=== PATIENT | male | born 1960 | race Caucasian/White ===

== ENCOUNTER 2017-08-04 14:53 | Outpatient (RCR) | payer OTHER | END 2017-11-02 | disposition home or self-care (01) | LOC: WSOT | DX: G56.23 Lesion of ulnar nerve, bilateral upper limbs (principal) ==

== ENCOUNTER 2017-08-10 10:53 | Outpatient (RCR) | payer OTHER | END 2017-11-08 | disposition home or self-care (01) | LOC: WSPT | DX: G56.23 Lesion of ulnar nerve, bilateral upper limbs (principal) ==

== ENCOUNTER → 2017-11-15 | Outpatient (CLI) | payer OTHER | LOC: COL.RAD 12:15 | DX: R55 Syncope and collapse (principal); M79.9 Soft tissue disorder, unspecified ==

== ENCOUNTER 2018-06-19 11:27 | Inpatient (IN) | payer OTHER ==
[~2018-06-19] VITALS: Ht 188 cm; Wt 91.1 kg
[~2018-06-19 11:27] MED LIST: CELEBREX400 MG PO; CEPHALEXIN500 M1 PO; CYMBALTA 30MG30 MG PO; FLEXERIL 1010 MG/TAB PO; MILLIPRED DP5 MG PO; NEURONTIN300 MG/CAP PO; PROTONIX 40MG T40 MG PO; ZOCOR 40MG40 MG PO; [UNRECOGNIZED DRUG - OTHER] PO
[2018-06-30] VITALS (10 sets, daily range): BP systolic 118–147; BP diastolic 61–93; PULSE 72–89; TEMP 97.6–98.9
[2018-06-30] MEDS ORDERED: LIALDA 1.2 GM1.2 GM PO (07:23)
[2018-06-30] MEDS ORDERED: NORCO 325 MG-51 TAB PO (07:25)
[2018-07-01] VITALS (7 sets, daily range): BP systolic 103–174; BP diastolic 61–102; PULSE 83–101; TEMP 97.8–98.8
[2018-07-01 05:27] LABS: BASO % 0.2 % (0.0-2.0); EOS % 0.1 % (0-4.0); GRAN # 11.3 (1.4-6.5); HEMATOCRIT 37.2 % (42.0-52.0); HEMOGLOBIN 13.1 g/dl (13.5-18.0); LYMPH # 2.6 (1.2-3.4); MEAN CELL VOLUME 100 fl (80.0-100.0); MEAN CORPUSCULAR HEMOGLOBIN 35 pg (27.0-31.0); MEAN CORPUSCULAR HGB CONC 35 g/dl (33.0-37.0); MONO # 1.3 (0.1-0.6); MONO % 8.2 % (1.7-9.3); PLATELET COUNT 232 K/mm3 (130-400); RED BLOOD COUNT 3.73 M/mm3 (4.20-5.60); REDCELL DISTRIBUTION WIDTH-CV 12.4 % (11.5-14.5)
[2018-07-01 05:39] LABS: CALCIUM 9.2 mg/dL (8.4-10.2); CREATININE, serum 1.2 mg/dL (0.66-1.25); POTASSIUM 4.4 mmol/L (3.4-5.0)
[2018-07-02 03:45] VITALS: BP 104/67; PULSE 83; TEMP 98.4
[2018-07-02 06:54] LABS: BASO # 0.1 (0.0-0.2); BASO % 0.5 % (0.0-2.0); EOS # 0.1 (0.0-0.7); GRAN # 7.4 (1.4-6.5); GRAN % 68.5 % (42.2-75.2); LYMPH # 2.4 (1.2-3.4); LYMPH % 22.7 % (20.0-51.0); MEAN CELL VOLUME 101 fl (80.0-100.0); MEAN CORPUSCULAR HGB CONC 35 g/dl (33.0-37.0); MEAN PLATELET VOLUME 9.8 fl (7.4-10.4); MONO # 0.7 (0.1-0.6); MONO % 6.9 % (1.7-9.3); PLATELET COUNT 192 K/mm3 (130-400); RED BLOOD COUNT 3.09 M/mm3 (4.20-5.60); REDCELL DISTRIBUTION WIDTH-CV 12.6 % (11.5-14.5)
[2018-07-02 06:55] LABS: HEMATOCRIT 31.2 % (42.0-52.0); MEAN CORPUSCULAR HEMOGLOBIN 36 pg (27.0-31.0)
[2018-07-02 07:04] LABS: CALCIUM 8.9 mg/dL (8.4-10.2); CREATININE, serum 0.91 mg/dL (0.66-1.25); POTASSIUM 4.2 mmol/L (3.4-5.0)
[2018-07-02 09:16] VITALS: BP 117/66; PULSE 75; TEMP 97.6
[2018-07-02 11:15] VITALS: BP 113/63; PULSE 87; TEMP 98.6
[2018-07-02 15:25] VITALS: BP 105/65; PULSE 85; TEMP 98.6
[2018-07-02 19:49] VITALS: BP 100/60; PULSE 78; TEMP 98.5
[2018-07-03 04:08] VITALS: BP 107/68; PULSE 72; TEMP 97.5
[2018-07-03 07:27] VITALS: BP 113/70; PULSE 88; TEMP 97.4
[2018-07-03 11:50] VITALS: BP 122/64; PULSE 73; TEMP 98.6
== END 2018-07-03 14:48 | disposition home or self-care (01) | DRG 331 ==
LOC: INPTSU 06-30 06:58 → SURG 06-30 09:00
PROVIDERS: Surgery
PROC: 8E0W4CZ Robotic Assisted Procedure of Trunk Region, Percutaneous Endoscopic Approach (ICD-10-PCS; 2018-06-30)
PROC: 0DTN4ZZ Resection of Sigmoid Colon, Percutaneous Endoscopic Approach (ICD-10-PCS; principal; 2018-06-30 09:00)
DX: K57.32 Diverticulitis of large intestine without perforation or abscess without bleeding (principal); Z85.828 Personal history of other malignant neoplasm of skin; G62.9 Polyneuropathy, unspecified; F17.210 Nicotine dependence, cigarettes, uncomplicated; K21.9 Gastro-esophageal reflux disease without esophagitis; G25.0 Essential tremor; M51.36 Other intervertebral disc degeneration, lumbar region
CPT/HCPCS: A4314; A9284; J0360; J0690; J1100; J1650; J1885; J2405; J2704; J3010; J7120

== ENCOUNTER 2018-11-14 10:06 | Outpatient (RCR) | payer OTHER ==
[2018-11-14] VITALS (9 sets, daily range): BP systolic 125–141; BP diastolic 78–89; PULSE 72–91; TEMP 97.7–98.1
[~2018-11-14] VITALS: Ht 188 cm; Wt 95.0 kg
[~2018-11-14 10:06] MED LIST changes: +LIALDA 1.2 GM1.2 GM PO; +NORCO 325 MG-51 TAB PO
[2018-11-14 10:45] LABS: CREATININE, serum 0.81 mg/dL (0.66-1.25)
--- NOTE | 2018-11-14 13:46 | NUR ---
Pt tomas 1st dose of IV IGG well. Pt discharged per ambulation.
== END 2018-11-14 13:47 | disposition home or self-care (01) ==
LOC: EUO 10:06
PROVIDERS: Nurse Practitioner
DX: D83.9 Common variable immunodeficiency, unspecified (principal); Z79.899 Other long term (current) drug therapy
CPT/HCPCS: J1569

== ENCOUNTER 2018-12-12 10:50 | Outpatient (CLI) | payer OTHER ==
[2018-12-12] VITALS (8 sets, daily range): BP systolic 114–165; BP diastolic 79–107; PULSE 70–85; TEMP 97.3–98.4
[~2018-12-12] VITALS: Ht 188 cm; Wt 96.9 kg
[2018-12-12 11:45] LABS: CREATININE, serum 0.9 (0.66-1.25)
== END 2018-12-12 14:04 | disposition home or self-care (01) ==
LOC: EUO 10:50
PROVIDERS: Nurse Practitioner
DX: D83.9 Common variable immunodeficiency, unspecified (principal); Z79.899 Other long term (current) drug therapy
CPT/HCPCS: J1569

== ENCOUNTER 2019-01-11 10:24 | Outpatient (CLI) | payer OTHER ==
[~2019-01-11] VITALS: Ht 188 cm; Wt 97.0 kg
[2019-01-11] VITALS (8 sets, daily range): BP systolic 153–184; BP diastolic 95–115; PULSE 77–87; TEMP 98.2–98.7
--- NOTE | 2019-01-11 13:40 | NUR ---
Pt given copy of BS for today and last few visits. Pt instructed to call Dr. Galindo to be seen for BP and to bring copy of VS provided.
== END 2019-01-11 14:20 | disposition home or self-care (01) ==
LOC: EUO 10:24
DX: D83.9 Common variable immunodeficiency, unspecified (principal); D80.1 Nonfamilial hypogammaglobulinemia; Z79.899 Other long term (current) drug therapy
CPT/HCPCS: J1459; J1569

== ENCOUNTER → 2019-02-02 | Outpatient (CLI) | payer OTHER | LOC: COL.CARD 07:00 | DX: I10 Essential (primary) hypertension (principal) ==

== ENCOUNTER 2019-02-08 12:52 | Outpatient (CLI) | payer OTHER ==
[~2019-02-08] VITALS: Ht 188 cm; Wt 96.8 kg
[2019-02-08] VITALS (9 sets, daily range): BP systolic 100–117; BP diastolic 72–82; PULSE 82–86; TEMP 98.2
[2019-02-08 13:22] LABS: BASO # 0.1 (0.0-0.2); BASO % 0.8 % (0.0-2.0); EOS # 0.3 (0.0-0.7); EOS % 3.7 % (0-4.0); GRAN # 4.2 (1.4-6.5); GRAN % 56.8 % (42.2-75.2); HEMATOCRIT 40.8 % (42.0-52.0); HEMOGLOBIN 13.5 g/dl (13.5-18.0); LYMPH # 2.3 (1.2-3.4); LYMPH % 31.7 % (20.0-51.0); MEAN CELL VOLUME 89 fl (80.0-100.0); MEAN CORPUSCULAR HEMOGLOBIN 29 pg (27.0-31.0); MEAN CORPUSCULAR HGB CONC 33 g/dl (33.0-37.0); MONO # 0.5 (0.1-0.6); MONO % 6.7 % (1.7-9.3); PLATELET COUNT 244 K/mm3 (130-400); REDCELL DISTRIBUTION WIDTH-CV 18.5 % (11.5-14.5)
[2019-02-08 13:37] LABS: ALBUMIN 4.2 gm/dL (3.5-5.0); BILIRUBIN,TOTAL 1.3 mg/dL (0.0-1.0); C-REACTIVE PROTEIN 0.7 mg/dL (0.0-0.9); CALCIUM 9.4 mg/dL (8.4-10.2); CREATININE, serum 0.95 (0.66-1.25); POTASSIUM 4.3 mmol/L (3.4-5.0); TOTAL PROTEIN 7.5 gm/dL (6.4-8.2)
[2019-02-08 13:47] LABS: ERYTHROCYTE SEDIMENTATION RATE 13 mm/hr (0-30)
[2019-02-08] MEDS ORDERED: ZESTRIL 20MG TA20 MG PO (14:17)
== END 2019-02-08 17:05 | disposition home or self-care (01) ==
LOC: EUO 12:52
PROVIDERS: Internal Medicine Infectious Disease
DX: D83.9 Common variable immunodeficiency, unspecified (principal); D80.1 Nonfamilial hypogammaglobulinemia; B99.9 Unspecified infectious disease; Z79.899 Other long term (current) drug therapy
CPT/HCPCS: J1569

== ENCOUNTER 2019-03-08 12:59 | Outpatient (CLI) | payer OTHER ==
[2019-03-08] VITALS (8 sets, daily range): BP systolic 109–140; BP diastolic 62–93; PULSE 84–94; TEMP 98.5–99.5
[~2019-03-08] VITALS: Ht 188 cm; Wt 96.4 kg
[~2019-03-08 12:59] MED LIST changes: +ZESTRIL 20MG TA20 MG PO
[2019-03-08] MEDS ORDERED: PRINZIDE 12.5 M1 TA1 PO (14:11)
== END 2019-03-08 16:39 | disposition home or self-care (01) ==
LOC: EUO 12:59
DX: D83.9 Common variable immunodeficiency, unspecified (principal); D80.1 Nonfamilial hypogammaglobulinemia; Z79.899 Other long term (current) drug therapy
CPT/HCPCS: J1569

== ENCOUNTER 2019-04-05 09:03 | Outpatient (CLI) | payer OTHER ==
[~2019-04-05] VITALS: Ht 188 cm; Wt 96.4 kg
[~2019-04-05 09:03] MED LIST changes: +PRINZIDE 12.5 M1 TA1 PO
[2019-04-05 09:30] VITALS: BP 124/77; PULSE 81; TEMP 98.2
[2019-04-05 09:45] VITALS: BP 128/85; PULSE 75; TEMP 98.2
[2019-04-05 10:00] VITALS: BP 140/86; PULSE 74; TEMP 98.2
[2019-04-05 10:30] VITALS: BP 135/84; PULSE 72; TEMP 98.2
[2019-04-05 11:00] VITALS: BP 131/93; PULSE 71; TEMP 98.2
[2019-04-05 11:26] VITALS: BP 140/99; PULSE 70; TEMP 97.9
== END 2019-04-05 12:08 | disposition home or self-care (01) ==
LOC: EUO 09:03
DX: D83.9 Common variable immunodeficiency, unspecified (principal); B99.9 Unspecified infectious disease; D80.1 Nonfamilial hypogammaglobulinemia; Z79.899 Other long term (current) drug therapy
CPT/HCPCS: J1569

== ENCOUNTER 2019-05-31 12:10 | Outpatient (CLI) | payer OTHER ==
[2019-05-31] VITALS (10 sets, daily range): BP systolic 16–125; BP diastolic 79–97; PULSE 85–95; TEMP 98.9
[~2019-05-31] VITALS: Ht 188 cm; Wt 89.6 kg
== END 2019-05-31 16:30 | disposition home or self-care (01) ==
LOC: EUO 12:10
DX: D83.9 Common variable immunodeficiency, unspecified (principal); Z79.899 Other long term (current) drug therapy
CPT/HCPCS: J1459; J1569

== ENCOUNTER → 2019-06-08 | Outpatient (CLI) | payer OTHER | LOC: COL.RAD 09:30 | DX: N13.30 Unspecified hydronephrosis (principal); D72.829 Elevated white blood cell count, unspecified; R79.82 Elevated C-reactive protein (CRP) ==

== ENCOUNTER 2019-06-28 08:59 | Outpatient (CLI) | payer OTHER ==
[2019-06-28] VITALS (9 sets, daily range): BP systolic 109–131; BP diastolic 73–86; PULSE 64–80; TEMP 97.5–98
[~2019-06-28] VITALS: Ht 188 cm; Wt 88.0 kg
[2019-06-28 10:07] LABS: CREATININE, serum 1.42 (0.66-1.25)
== END 2019-06-28 14:17 | disposition home or self-care (01) ==
LOC: EUO 08:59
PROVIDERS: Nurse Practitioner
DX: D80.1 Nonfamilial hypogammaglobulinemia (principal); D83.9 Common variable immunodeficiency, unspecified; B99.9 Unspecified infectious disease; Z79.899 Other long term (current) drug therapy
CPT/HCPCS: J1459; J1569

== ENCOUNTER → 2019-07-18 | Outpatient (CLI) | payer OTHER | LOC: COL.RAD 06:50 | DX: K92.2 Gastrointestinal hemorrhage, unspecified (principal); R79.82 Elevated C-reactive protein (CRP); R74.8 Abnormal levels of other serum enzymes; R70.0 Elevated erythrocyte sedimentation rate | CPT/HCPCS: A9585 ==

== ENCOUNTER 2019-07-26 12:52 | Outpatient (CLI) | payer OTHER ==
[~2019-07-26] VITALS: Ht 188 cm; Wt 91.2 kg
[2019-07-26] VITALS (10 sets, daily range): BP systolic 108–126; BP diastolic 66–104; PULSE 65–86; TEMP 98.4–98.8
== END 2019-07-26 17:00 | disposition home or self-care (01) ==
LOC: EUO 12:52
DX: D83.9 Common variable immunodeficiency, unspecified (principal); B99.9 Unspecified infectious disease; D80.1 Nonfamilial hypogammaglobulinemia; Z79.899 Other long term (current) drug therapy
CPT/HCPCS: J1569

== ENCOUNTER → 2019-08-10 | Outpatient (CLI) | payer OTHER | LOC: COL.LAB 14:08 | DX: R11.0 Nausea (principal) ==

== ENCOUNTER → 2019-08-21 | Outpatient (CLI) | payer OTHER | LOC: COL.RAD 07:31 | DX: R11.0 Nausea (principal) | CPT/HCPCS: A9541 ==

== ENCOUNTER 2019-08-23 12:53 | Outpatient (CLI) | payer OTHER ==
[~2019-08-23] VITALS: Ht 188 cm; Wt 91.0 kg
[2019-08-23] VITALS (8 sets, daily range): BP systolic 99–135; BP diastolic 73–90; PULSE 72–85; TEMP 97.2–98.6
[2019-08-23 13:39] LABS: CREATININE, serum 1.11 (0.66-1.25)
== END 2019-08-23 16:20 ==
LOC: EUO 12:53
PROVIDERS: Nurse Practitioner
DX: D80.1 Nonfamilial hypogammaglobulinemia (principal); D83.9 Common variable immunodeficiency, unspecified; B99.9 Unspecified infectious disease
CPT/HCPCS: J1459; J1569

== ENCOUNTER 2019-09-20 09:47 | Outpatient (CLI) | payer OTHER ==
[~2019-09-20] VITALS: Ht 188 cm; Wt 90.5 kg
[2019-09-20] VITALS (7 sets, daily range): BP systolic 121–136; BP diastolic 80–89; PULSE 69–77; TEMP 98.6–98.7
== END 2019-09-20 13:27 | disposition home or self-care (01) ==
LOC: EUO 09:47
DX: D83.9 Common variable immunodeficiency, unspecified (principal); D80.1 Nonfamilial hypogammaglobulinemia; B99.9 Unspecified infectious disease; Z79.899 Other long term (current) drug therapy
CPT/HCPCS: J1459; J1569

== ENCOUNTER 2019-10-18 10:00 | Outpatient (CLI) | payer OTHER ==
[~2019-10-18] VITALS: Ht 188 cm; Wt 91.6 kg
[2019-10-18] VITALS (8 sets, daily range): BP systolic 103–118; BP diastolic 62–78; PULSE 48–78; TEMP 97.5–97.7
[2019-10-18 10:45] LABS: CREATININE, serum 1.23 (0.66-1.25)
== END 2019-10-18 18:00 | disposition home or self-care (01) ==
LOC: EUO 10:00
PROVIDERS: Internal Medicine Infectious Disease
DX: B99.9 Unspecified infectious disease (principal); D80.1 Nonfamilial hypogammaglobulinemia; D83.9 Common variable immunodeficiency, unspecified
CPT/HCPCS: J1569

== ENCOUNTER → 2020-12-18 | Outpatient (REF) | payer BC ==
[~2020-12-18] MED LIST changes: +WELLBUTRIN 75MG75 MG PO
== END ==
LOC: ZCOL.LAB 17:48
DX: H00.19 Chalazion unspecified eye, unspecified eyelid (principal)